=== PATIENT | female | born 1970 | race Caucasian/White ===

== ENCOUNTER 2016-07-23 19:00 | Emergency (ER) | payer BC ==
[~2016-07-23] VITALS: Ht 162.6 cm; Wt 73.6 kg
[2016-07-23 19:03] VITALS: BP 125/87
[2016-07-23] MEDS ORDERED: NACL 0.9% 1,000 ML IV ONE (19:30)
--- NOTE | 2016-07-23 19:51 | NUR ---
IV 20 GAUGE ESTABLISHED TO LEFT AC. LABS DRAWN AND SENT TO LAB.
--- NOTE | 2016-07-23 19:59 | NUR ---
X-Ray at bedside.
[2016-07-23 20:00] LABS: BASOPHILS % (AUTO) 0.7 % (0.0-2.0); EOSINOPHILS # (AUTO) 0.2 K/uL (0-0.4); EOSINOPHILS % (AUTO) 3.5 % (0.0-4.0); HEMATOCRIT 35.2 % (36-48); HEMOGLOBIN 10.4 g/dL (12.0-16.0); LYMPHOCYTES # (AUTO) 2.8 K/uL (2.5-16.5); MEAN CORPUSCULAR HEMOGLOBIN 19 pg (27-31); MEAN CORPUSCULAR HGB CONC 29 g/dL (33-37); MEAN CORPUSCULAR VOLUME 64 fL (80-94); MONOCYTES # (AUTO) 0.4 K/uL (0.8-1.0); MONOCYTES % (AUTO) 5.9 % (1.7-9.3); NEUTROPHILS % (AUTO) 45.9 % (42.2-75.2); PLATELET COUNT (AUTO) 227 K/uL (140-450); RED BLOOD CELL COUNT(AUTO) 5.54 MIL/uL (4.20-5.40); RED CELL DISTRIBUTION WIDTH 14.3 % (11.6-13.7); WHITE BLOOD COUNT (AUTO) 6.4 K/uL (4.8-10.8)
--- NOTE | 2016-07-23 20:09 | NUR ---
45/F presents to the emergency room with complaints of feeling tired. Pt states this has started today. Pt states "I'm having an anemic attack. I am very active but today I am just so tired." Patient denies any pain. Ambulates with steady gait. AOX4, clear speech. Skin warm and dry, normal in color for ethnicty. VSS. Pt placed in a position of comfort, all needs met. Warm blanket provided. HX: THALASSEMIA 2012
--- NOTE | 2016-07-23 20:09 | NUR ---
Patient appears to be resting comfortably in bed. Vital Signs within normal limits. Respirations even and unlabored.
[2016-07-23 20:10] LABS: ANION GAP 10.9 (8-16); CALCIUM 8.8 mg/dL (8.5-10.1); CARBON DIOXIDE 28.1 mmol/L (21-32); CREATININE 0.9 mg/dL (0.6-1.3)
[2016-07-23 20:15] LABS: MAGNESIUM 1.8 mg/dL (1.8-2.4); PHOSPHORUS 4.4 mg/dL (2.5-4.9)
[2016-07-23 20:48] LABS: THYROID STIMULATING HORMONE 5.26 uIU/mL (0.34-3.76)
--- NOTE | 2016-07-23 21:01 | NUR ---
RECEIVED REPORT FROM ANGELY NORRIS FOR TRANSFER OF CARE.
--- NOTE | 2016-07-23 21:04 | NUR ---
IV removed, catheter intact and site benign. Applied folded 4x4 gauze and tape to stop bleeding.
[2016-07-23 21:25] VITALS: BP 112/72
== END 2016-07-23 21:23 | disposition home or self-care (01) ==
LOC: MED 19:00
DX: D64.9 Anemia, unspecified (principal); R53.1 Weakness; E78.00 Pure hypercholesterolemia, unspecified
CPT/HCPCS: 36415; 71010; 80048; 83735; 84100; 84439; 84443; 84484; 85025; 93005; 96360; 99285; J7030